=== PATIENT | male | born 1995 | race Caucasian/White ===

== ENCOUNTER 2022-01-09 07:53 | Emergency (ER) | payer SELFPAY ==
[~2022-01-09] VITALS: Ht 182.9 cm; Wt 95.3 kg
[2022-01-09 08:53] VITALS: BP 121/54
[2022-01-09] MEDS ORDERED: FAMO-92 PO (09:51)
[2022-01-09] MEDS ORDERED: ONDA-188 PO (09:51)
--- NOTE | 2022-01-09 10:12 | NUR ---
Patient discharged with v/s stable. Written and verbal after care instructions given and explained. Patient alert, oriented and verbalized understanding of instructions. Ambulatory with steady gait. All questions addressed prior to discharge. ID band removed. Patient advised to follow up with PMD. Rx of FAMOTIDINE, ONDANSETRON given. Opportunity to ask questions provided and answered.
== END 2022-01-09 10:11 | disposition home or self-care (01) ==
LOC: MED 07:53
DX: K29.70 Gastritis, unspecified, without bleeding (principal)
CPT/HCPCS: 81002; 99283

== ENCOUNTER 2022-07-04 18:03 | Emergency (ER) | payer SELFPAY ==
[~2022-07-04] VITALS: Ht 180.3 cm; Wt 95.3 kg
[~2022-07-04 18:03] MED LIST: FAMO-92 PO; ONDA-188 PO
[2022-07-04 18:17] VITALS: BP 155/91
--- NOTE | 2022-07-04 18:20 | NUR ---
27 yo/m presents to ED w c/o epigastric pain 09/27 sore non-rad x3 days, +n/v/d(no blood), pt reports x approx 10 episodes of emesis, and x2 episodes of diarhhea. pt reports this has occured in the past and has been diagnosed with gastritis. pt denies chest pain, sob, fevers, chills. pt took omeprazole at 1235 today wshort time relief. pmh: gastritis allergies:denies
[2022-07-04] MEDS ORDERED: FAMOTIDINE 20 MG/2 ML VIAL IVP ONE (19:00)
[2022-07-04] MEDS ORDERED: NACL 0.9% 1,000 ML IV ONE (19:00)
[2022-07-04] MEDS ORDERED: ONDANSETRON 4 MG/2 ML VIAL IVP ONE (19:00)
[2022-07-04 19:15] LABS: BASOPHILS # (AUTO) 0.1 K/uL (0.00-0.22); BASOPHILS % (AUTO) 0.4 % (0.0-2.0); EOSINOPHILS % (AUTO) 0.2 % (0.0-4.0); HEMATOCRIT 44.2 % (36-52); HEMOGLOBIN 15.4 g/dL (12.0-18.0); LYMPHOCYTES # (AUTO) 1.1 K/uL (2.0-11.5); MEAN CORPUSCULAR HEMOGLOBIN 28 pg (27-31); MEAN CORPUSCULAR HGB CONC 35 g/dL (33-37); MEAN CORPUSCULAR VOLUME 80.6 fL (80-94); MONOCYTES # (AUTO) 0.9 K/uL (0.8-1.0); MONOCYTES % (AUTO) 6.5 % (1.7-9.3); NEUTROPHILS # (AUTO) 11.7 K/uL (1.8-7.7); NEUTROPHILS % (AUTO) 84.9 % (42.2-75.2); PLATELET COUNT (AUTO) 228 K/uL (140-450); RED BLOOD CELL COUNT(AUTO) 5.49 MIL/uL (4.20-6.10); RED CELL DISTRIBUTION WIDTH 14.4 % (11.6-13.7); WHITE BLOOD COUNT (AUTO) 13.8 K/uL (4.8-10.8)
--- NOTE | 2022-07-04 19:20 | NUR ---
PT REPORT TO PHIL WILL
--- NOTE | 2022-07-04 19:34 | NUR ---
Patient resting in bed, A/Ox4, chest rise and fall symmetrical, no s/s of distress, on monitor.
[2022-07-04 19:36] LABS: ALBUMIN 4.3 g/dL (3.4-5.0); ANION GAP 12.6 (8-16); CARBON DIOXIDE 28.7 mmol/L (21-32); CREATININE 1.1 mg/dL (0.6-1.3); POTASSIUM 3.3 mmol/L (3.5-5.1); TOTAL BILIRUBIN 3.4 mg/dL (0.0-1.0)
[2022-07-04] MEDS ORDERED: FAMO-90 PO (20:29)
[2022-07-04] MEDS ORDERED: ONDA-188 SL (20:29)
[2022-07-04 21:26] VITALS: BP 122/85
== END 2022-07-04 21:35 | disposition home or self-care (01) ==
LOC: MED 18:03
DX: A08.39 Other viral enteritis (principal); R11.10 Vomiting, unspecified; F12.90 Cannabis use, unspecified, uncomplicated; Z79.899 Other long term (current) drug therapy
CPT/HCPCS: 36415; 80053; 83690; 85025; 96361; 96374; 96375; 99284; J2405; J3490; J7030